=== PATIENT | female | born 1950 | race Caucasian/White ===

== ENCOUNTER 2022-08-27 08:38 | Day surgery (SDC) | payer MEDICARE ==
[~2022-08-27] VITALS: Ht 167.6 cm; Wt 78.0 kg
[~2022-08-27 08:38] MED LIST: AMLO5 PO; AMOCLA875 PO; ANTIDEPRESSANT; ASPI325 PO; CLOP75 PO; EUTHYROX50 MCG PO; EZET10 PO; LEVOTHYROXINE; LEVOTHYROXINE125 MC9 PO; METO25ER PO; Synthroid175 MCG PO; VENL150ER PO; XARELTO20 MG PO; ZOLP10 PO; [UNRECOGNIZED DRUG - REMARK]
[2022-08-27] MEDS ORDERED: AMLO5 PO (09:20)
--- NOTE | 2022-08-27 09:23 | NUR ---
Ambulatory in Day Surgery Patient confirms NPO status and agrees with scheduled surgery. History, Chart, Medications and Allergies reviewed before start of procedure.Patient States Post-Procedure ride home has been arranged.
--- NOTE | 2022-08-27 10:21 | NUR ---
08/27/22 1021 Ingrid Diggs HISTORY, CHART, MEDICATIONS AND ALLERGIES REVIEWED BEFORE START OF PROCEDURE. PATIENT CONFIRMS NPO STATUS AND AGREES WITH SCHEDULED PROCEDURE. 3-LEAD EKG REVIEWED WITH PHYSICIAN PRIOR TO START OF PROCEDURE. MONITOR INTACT WITH CONTINUOUS PULSE OXIMETRY,CAPNOGRAPHY, 3-LEAD EKG, INTERMITTENT BP. SUPPLEMENTAL O2 TO BE TITRATED THROUGHOUT PROCEDURE TO MAINTAIN O2 SATURATION ABOVE 90%. PATIENT DETERMINED TO BE ASA APPROPRIATE FOR PROPOFOL SEDATION PRIOR TO START OF PROCEDURE BY DR. LAGUERRE.
--- NOTE | 2022-08-27 11:26 | NUR ---
Patient up to Ambulate independently. Gait steady. Discharge instructions reviewed with patient. Patient verbalizes understanding. Copy given to patient to take home. Lungs clear T/O to Auscultation. Discharged via wheelchair to private car for ride home.
== END 2022-08-27 22:49 | disposition home or self-care (01) ==
LOC: ORSCMMR 08:38 → ORD 09:30 → ORSCMMR 22:49
PROVIDERS: Internal Medicine Gastroenterology
PROC: 0DBL8ZX Excision of Transverse Colon, Via Natural or Artificial Opening Endoscopic, Diagnostic (ICD-10-PCS; principal; 2022-08-27 09:30)
PROC: 0DBN8ZX Excision of Sigmoid Colon, Via Natural or Artificial Opening Endoscopic, Diagnostic (ICD-10-PCS; principal; 2022-08-27 09:30)
PROC: 0DBM8ZX Excision of Descending Colon, Via Natural or Artificial Opening Endoscopic, Diagnostic (ICD-10-PCS; principal; 2022-08-27 09:30)
DX: Z12.11 Encounter for screening for malignant neoplasm of colon (principal); K63.5 Polyp of colon; K64.8 Other hemorrhoids; I48.91 Unspecified atrial fibrillation; Z86.73 Personal history of transient ischemic attack (TIA), and cerebral infarction without residual deficits; E03.9 Hypothyroidism, unspecified; E78.00 Pure hypercholesterolemia, unspecified; F32.A Depression, unspecified; F17.210 Nicotine dependence, cigarettes, uncomplicated; Z79.01 Long term (current) use of anticoagulants; Z79.899 Other long term (current) drug therapy
CPT/HCPCS: 88305; J2405; J2704; J7120

== ENCOUNTER 2024-02-26 06:28 | Emergency (ER) | payer MEDICARE ==
[~2024-02-26] VITALS: Ht 170.2 cm; Wt 78.0 kg
[2024-02-26] MEDS ORDERED: NS 500 ML IV SCH (06:35)
[2024-02-26] MEDS ORDERED: Promethazine HCl 25 MG Tab PO ONE (06:35)
[2024-02-26 07:18] LABS: BASOPHILS ABSOLUTE AUTO 0.02 K/mm3 (0.00-0.23); BASOPHILS PERCENT AUTO 0 % (0-2); EOSINOPHILS PERCENT AUTO 0 % (0-6); Hematocrit 39.3 % (33.0-51.0); IMMATURE GRAN ABSOLUTE AUTO 0.02 K/mm3 (0.00-0.10); IMMATURE GRAN PERCENT AUTO 0 % (0-1); LYMPHOCYTES ABSOLUTE AUTO 0.96 K/mm3 (0.84-5.20); LYMPHOCYTES PERCENT AUTO 13 % (21-46); MONOCYTES ABSOLUTE AUTO 0.54 K/mm3 (0.16-1.47); MONOCYTES PERCENT AUTO 7 % (4-13); Mean Corpuscular HGB 32.9 pg (26.0-34.0); Mean Corpuscular HGB Conc 35.6 g/dL (31.5-36.5); Mean Corpuscular Volume 92 fL (80-100); Mean Platelet Volume 9.2 fL (9.1-12.4); NEUTROPHILS ABSOLUTE AUTO 6.02 K/mm3 (1.96-9.15); NEUTROPHILS PERCENT AUTO 80 % (41-73); Platelet Count 375 K/mm3 (150-400); RDW Coefficient Variation 13.3 % (11.7-14.2); RDW Standard Deviation 45.2 fL (35.1-46.3); Red Blood Cell Count 4.26 M/mm3 (3.80-5.20); White Blood Cell Count 7.56 K/mm3 (4.00-11.30)
[2024-02-26 07:35] LABS: International Normalized Ratio 1.62; Prothrombin Time Results 16.7 Sec (9.7-11.5)
[2024-02-26 07:51] LABS: Albumin, Blood 3.6 g/dL (3.4-5.0); Albumin/Globulin Ratio 1.1 (0.8-1.8); Bilirubin, Total 0.6 mg/dL (0.1-1.0); Bun/Creatinine Ratio 28.8 (12.0-20.0); Calcium, Blood 8.4 mg/dL (8.5-10.1); Creatinine, Blood 0.59 mg/dL (0.40-1.00); Globulin, Blood 3.2 g/dL (2.2-4.0); Potassium, Blood 3.4 mmol/L (3.5-5.5); Total Protein, Blood 6.8 g/dL (6.4-8.2)
[2024-02-26 10:15] VITALS: BP 153/87
[2024-02-26] MEDS ORDERED: PROM25 PO (10:22)
== END 2024-02-26 10:40 | disposition home or self-care (01) ==
LOC: ER 06:28
PROVIDERS: Emergency Medicine
DX: H81.399 Other peripheral vertigo, unspecified ear (principal); R11.10 Vomiting, unspecified; E03.9 Hypothyroidism, unspecified; I10 Essential (primary) hypertension; Z88.8 Allergy status to other drugs, medicaments and biological substances; Z86.73 Personal history of transient ischemic attack (TIA), and cerebral infarction without residual deficits; Z79.899 Other long term (current) drug therapy
CPT/HCPCS: 70450; 70551; 80053; 83036; 85025; 85610; 93005; 93010; 99285-25; A9270; J7030

== ENCOUNTER 2024-05-20 18:39 | Inpatient (IN) | payer MEDICARE ==
[~2024-05-20] VITALS: Ht 170.2 cm; Wt 76.8 kg
[~2024-05-20 18:39] MED LIST changes: +EUTHYROX175 MCG PO; +Enoxaparin 40 MG/0.4 ML SYR SC SCH; -LEVOTHYROXINE125 MC9 PO; +PROM25 PO
[2024-05-20 19:32] LABS: BASOPHILS ABSOLUTE AUTO 0.02 K/mm3 (0.00-0.23); BASOPHILS PERCENT AUTO 0 % (0-2); EOSINOPHILS ABSOLUTE AUTO 0.05 K/mm3 (0.00-0.68); EOSINOPHILS PERCENT AUTO 1 % (0-6); Hematocrit 40.2 % (33.0-51.0); Hemoglobin 14.5 g/dL (11.5-16.0); IMMATURE GRAN ABSOLUTE AUTO 0.13 K/mm3 (0.00-0.10); IMMATURE GRAN PERCENT AUTO 2 % (0-1); LYMPHOCYTES ABSOLUTE AUTO 1.45 K/mm3 (0.84-5.20); LYMPHOCYTES PERCENT AUTO 24 % (21-46); MONOCYTES ABSOLUTE AUTO 0.83 K/mm3 (0.16-1.47); MONOCYTES PERCENT AUTO 14 % (4-13); Mean Corpuscular HGB 32.4 pg (26.0-34.0); Mean Corpuscular HGB Conc 36.1 g/dL (31.5-36.5); Mean Corpuscular Volume 90 fL (80-100); Mean Platelet Volume 8.5 fL (9.1-12.4); NEUTROPHILS ABSOLUTE AUTO 3.47 K/mm3 (1.96-9.15); NEUTROPHILS PERCENT AUTO 58 % (41-73); Platelet Count 359 K/mm3 (150-400); RDW Coefficient Variation 13.7 % (11.7-14.2); RDW Standard Deviation 44.8 fL (35.1-46.3); Red Blood Cell Count 4.47 M/mm3 (3.80-5.20); White Blood Cell Count 5.95 K/mm3 (4.00-11.30)
[2024-05-20 19:56] LABS: Albumin, Blood 3.8 g/dL (3.4-5.0); Bilirubin, Total 0.4 mg/dL (0.1-1.0); Bun/Creatinine Ratio 23.2 (12.0-20.0); Calcium, Blood 9.6 mg/dL (8.5-10.1); Creatinine, Blood 0.73 mg/dL (0.40-1.00); Globulin, Blood 3.7 g/dL (2.2-4.0); Potassium, Blood 3.5 mmol/L (3.5-5.5); Total Protein, Blood 7.5 g/dL (6.4-8.2)
[2024-05-20] MEDS ORDERED: PredniSONE 20 MG Tab PO ONE (21:10)
[2024-05-20] MEDS ORDERED: Azithromycin 250 MG Tab PO ONE (21:10)
[2024-05-20] MEDS ORDERED: Ipratropium/Albuterol SulF 2.5-0.5MG/3 ML Amp INH ONE (21:10)
[2024-05-20] MEDS ORDERED: Albuterol 2.5 MG/3 ML VIAL INH SCH ×2 (21:10→23:00)
[2024-05-20] MEDS ORDERED: Ondansetron HCl 2 MG / ML 2ML Vial IV PRN (23:20)
[2024-05-20] MEDS ORDERED: FLU VACC TS2024-25(6MOS UP)/PF 45 MCG/0.5 ML SYRINGE IM ONE (23:20)
[2024-05-20] MEDS ORDERED: Ipratropium/Albuterol SulF 2.5-0.5MG/3 ML Amp INH PRN (23:20)
[2024-05-21] MEDS ORDERED: MethylPREDNISolone Sod Succ 125 MG Vial IV SCH
[2024-05-21 00:50] LABS: Influenza B, PCR NEGATIVE (NEGATIVE); Resp Syncytial Virus, PCR NEGATIVE (NEGATIVE); SARS-Cov-2 (COVID-19) PCR, MMC NEGATIVE (NEGATIVE)
[2024-05-21 00:56] LABS: Influenza A, PCR POSITIVE (NEGATIVE)
[2024-05-21 01:43] VITALS: BP 151/86
[2024-05-21] MEDS ORDERED: Acetaminophen 325 MG TABLET PO PRN (03:15)
[2024-05-21] MEDS ORDERED: Oseltamivir Phosphate 75 MG Cap PO ONE (05:00)
[2024-05-21 05:55] LABS: BASOPHILS ABSOLUTE AUTO 0.01 K/mm3 (0.00-0.23); BASOPHILS PERCENT AUTO 0 % (0-2); EOSINOPHILS PERCENT AUTO 0 % (0-6); Hematocrit 36.4 % (33.0-51.0); Hemoglobin 13.1 g/dL (11.5-16.0); IMMATURE GRAN ABSOLUTE AUTO 0.15 K/mm3 (0.00-0.10); IMMATURE GRAN PERCENT AUTO 2 % (0-1); LYMPHOCYTES ABSOLUTE AUTO 0.58 K/mm3 (0.84-5.20); LYMPHOCYTES PERCENT AUTO 8 % (21-46); MONOCYTES PERCENT AUTO 1 % (4-13); Mean Corpuscular HGB 32.2 pg (26.0-34.0); Mean Corpuscular Volume 89 fL (80-100); NEUTROPHILS ABSOLUTE AUTO 6.88 K/mm3 (1.96-9.15); NEUTROPHILS PERCENT AUTO 89 % (41-73); Platelet Count 359 K/mm3 (150-400); RDW Coefficient Variation 13.7 % (11.7-14.2); RDW Standard Deviation 44.8 fL (35.1-46.3); Red Blood Cell Count 4.07 M/mm3 (3.80-5.20); White Blood Cell Count 7.72 K/mm3 (4.00-11.30)
[2024-05-21 06:16] LABS: Albumin, Blood 3.4 g/dL (3.4-5.0); Bilirubin, Total 0.4 mg/dL (0.1-1.0); Bun/Creatinine Ratio 24.8 (12.0-20.0); Calcium, Blood 8.9 mg/dL (8.5-10.1); Creatinine, Blood 0.77 mg/dL (0.40-1.00); Globulin, Blood 3.5 g/dL (2.2-4.0); Total Protein, Blood 6.9 g/dL (6.4-8.2)
[2024-05-21] MEDS ORDERED: Benzonatate 100 MG Cap PO PRN (06:20)
[2024-05-21 07:34] VITALS: BP 149/90
--- NOTE | 2024-05-21 07:41 | NUR ---
SHIFT SUMMARY PT ADMITTED APPROX 0100 FOR NEW DIAGNOSIS OF COPD WITH EXACERBATION. PT S WILL BE BACK TODAY TO VISIT AND BRING PT S MEDICATIONS TO COMPLETE MED REC. PT LUNGS SOUND COURSE AND WET. PT ALSO TESTED POSITIVE FOR INFLUENZA A AND IS ON DROPLET PRECAUTIONS. PT IS PLEASANT AND COOPERATIVE WITH CARE. PT ON 2L SUPPLEMENTAL O2 VIA NC OR FACE MASK.
[2024-05-21] MEDS ORDERED: NS 500 ML IV SCH (07:45)
[2024-05-21] MEDS ORDERED: Potassium Chloride 20 MEQ TabCR PO SCH (08:00)
[2024-05-21] MEDS ORDERED: Guaifenesin/Dextromethorphan Syrup 5 ML UDC PO PRN (08:15)
[2024-05-21] MEDS ORDERED: Levothyroxine Sodium 0.05 MG Tab PO SCH (08:30)
[2024-05-21] MEDS ORDERED: Losartan Potassium 25 MG Tab PO SCH (09:00)
[2024-05-21] MEDS ORDERED: AmLODIPine Besylate 5 MG Tab PO SCH (09:00)
[2024-05-21] MEDS ORDERED: Venlafaxine HCl 75 MG CapCR PO SCH (09:00)
[2024-05-21] MEDS ORDERED: OxyCODONE HCL 5 MG TAB PO PRN (11:10)
[2024-05-21] MEDS ORDERED: PROM25 PO (11:13)
[2024-05-21] MEDS ORDERED: TRAZ50 PO (11:13)
[2024-05-21] MEDS ORDERED: METO25ER PO (11:14)
[2024-05-21] MEDS ORDERED: LEVOTHYROXINE150 MC9 PO (11:16)
[2024-05-21] MEDS ORDERED: CYCL10 PO (11:17)
--- NOTE | 2024-05-21 11:17 | NUR ---
"Spiritual Care Visit | Pt. request Pt. is awake in bed and welcomes my visit. Pt. is pleasant. No other visitors are present. faciltated a life review and considered matters of jarett and belief. Pt. displayed evidence of engagement and awareneness. Prayed with Pt. Pt. verbalized gratitude for the spiritual care visit."
[2024-05-21] MEDS ORDERED: Coumadin5 MG PO (11:18)
[2024-05-21] MEDS ORDERED: CEFD300 PO (11:19)
[2024-05-21 13:00] LABS: International Normalized Ratio 1.67; Prothrombin Time Results 17.2 Sec (9.7-11.5)
[2024-05-21 15:30] VITALS: BP 150/83
[2024-05-21] MEDS ORDERED: ALBU90OI INH (16:53)
[2024-05-21] MEDS ORDERED: Warfarin Sodium 5 MG Tab PO SCH (18:00)
--- NOTE | 2024-05-21 18:09 | NUR ---
SHIFT SUMMARY PT CONT LEVEL OF CARE WITH NO ACUTE CHANGES NOTED. PT IS A&OX4 AND INDEPENDENT IN ROOM. PT CONT TO UTILIZE 2L/NC. PT BROUGHT IN HOME MEDICATION THIS SHIFT MED REC WAS COMPLETED AND PT WAS RESTARTED ON HOME MEDICATIONS. PT NOTED TO BE COOPERATIVE WITH CARES AND CALL APPROPRIATE.
[2024-05-21] MEDS ORDERED: Azithromycin 500 MG in NS 250 ML IV SCH (21:00)
[2024-05-21] MEDS ORDERED: Enoxaparin 40 MG/0.4 ML SYR SC SCH (21:00)
[2024-05-21] MEDS ORDERED: Oseltamvir Phosphate 30 MG Cap PO SCH (21:00)
[2024-05-21 21:02] VITALS: BP 153/86
[2024-05-22] MEDS ORDERED: Zolpidem Tartrate 10 MG Tab PO PRN (00:20)
[2024-05-22] MEDS ORDERED: Venlafaxine HC150 MG PO (03:40)
[2024-05-22] MEDS ORDERED: SYNTHROID175 MC1 PO (03:41)
[2024-05-22] MEDS ORDERED: SYNTHROID150 MC2 PO (03:42)
--- NOTE | 2024-05-22 04:28 | NUR ---
SHIFT SUMMARY PT IS A/OX4, INDEPENDENT IN THE ROOM. NO ACUTE CHANGED THROUGHOUT THIS SHIFT. PT REMAINS ON 2L NC IN ORDER TO MAINTAIN SATS >92%. ON TELE RUNNING SINUS RYTHYM WITH 1 DEGREE AV BLOCK AND BBB IN THE 70'S. ORDER RECIEVED FOR HOME DOSE OF AMBIEN 10 MG PO AT BEDTIME PRN FOR SLEEP.
[2024-05-22] MEDS ORDERED: Levothyroxine Sodium 0.125 MG Tab PO SCH (06:00)
[2024-05-22 06:26] VITALS: BP 164/94
[2024-05-22 07:03] VITALS: BP 159/86
[2024-05-22 07:12] LABS: International Normalized Ratio 1.8; Prothrombin Time Results 18.4 Sec (9.7-11.5)
[2024-05-22 07:19] LABS: Hematocrit 36.7 % (33.0-51.0); Hemoglobin 13.2 g/dL (11.5-16.0); Mean Corpuscular HGB 32.7 pg (26.0-34.0); Mean Corpuscular Volume 91 fL (80-100); Mean Platelet Volume 8.9 fL (9.1-12.4); Platelet Count 394 K/mm3 (150-400); RDW Coefficient Variation 14.3 % (11.7-14.2); RDW Standard Deviation 47.1 fL (35.1-46.3); Red Blood Cell Count 4.04 M/mm3 (3.80-5.20); White Blood Cell Count 12.11 K/mm3 (4.00-11.30)
[2024-05-22 07:48] LABS: Albumin, Blood 3.5 g/dL (3.4-5.0); Albumin/Globulin Ratio 1.1 (0.8-1.8); Bilirubin, Total 0.3 mg/dL (0.1-1.0); Calcium, Blood 9.3 mg/dL (8.5-10.1); Creatinine, Blood 0.73 mg/dL (0.40-1.00); Globulin, Blood 3.3 g/dL (2.2-4.0); Magnesium, Blood 2.1 mg/dL (1.6-2.4); Potassium, Blood 4.4 mmol/L (3.5-5.5); Total Protein, Blood 6.8 g/dL (6.4-8.2)
[2024-05-22] MEDS ORDERED: Levothyroxine Sodium 0.15 MG Tab PO SCH (07:55)
[2024-05-22] MEDS ORDERED: Furosemide 20 MG Tab PO ONE ×2 (08:00→13:15)
[2024-05-22] MEDS ORDERED: Cyclobenzaprine HCl 10 MG Tab PO PRN (08:00)
[2024-05-22] MEDS ORDERED: Venlafaxine HCl 75 MG CapCR PO SCH (09:00)
[2024-05-22] MEDS ORDERED: AmLODIPine Besylate 5 MG Tab PO SCH (09:00)
[2024-05-22] MEDS ORDERED: Metoprolol Succinate 25 MG TABCR PO SCH (09:00)
--- NOTE | 2024-05-22 16:41 | NUR ---
SHIFT SUMMARY A&OX4, COOPERATIVE WITH CARE. PATIENT TRANSFERRED FROM SCU ABOUT 1000. INDEPENDENT IN ROOM. SPOUSE AT BEDSIDE. DENIES CP/PRESSURE, HEADACHE, OR DIZZINESS. SOB WITH EXERTION. CURRENTLY ON 2L O2 VIA NC. VSS. DENIES PAIN AT THIS TIME. NO ACUTE EVENTS THIS SHIFT. CURRENTLY WATCHING TV. BED IN THE LOWEST POSITION. CALL LIGHT WITHIN REACH.
[2024-05-22] MEDS ORDERED: Warfarin Sodium 5 MG Tab PO SCH (18:00)
[2024-05-22 19:39] VITALS: BP 151/85
[2024-05-22] MEDS ORDERED: Zolpidem Tartrate 10 MG Tab PO SCH (21:00)
[2024-05-23 03:01] VITALS: BP 141/75
--- NOTE | 2024-05-23 03:27 | NUR ---
SHIFT SUMMARY PT AOX4, COOPERATIVE, ABLE TO MAKE NEEDS KNOWN. IND IN ROOM, ON 2 L O2 CURRENTLY. LEFT ACIV WAS LEAKING, DC'D IT, RE-ESTABLISHED IV IN RIGHT FOREARM THAT IS PATENT. PT TOLERATING PO AND IV MEDICATIONS. BED IN LOWEST POSITION, CALL LIGHT WITHIN REACH.
[2024-05-23 05:29] LABS: BASOPHILS ABSOLUTE AUTO 0.02 K/mm3 (0.00-0.23); BASOPHILS PERCENT AUTO 0 % (0-2); EOSINOPHILS PERCENT AUTO 0 % (0-6); Hematocrit 36.5 % (33.0-51.0); Hemoglobin 12.9 g/dL (11.5-16.0); IMMATURE GRAN ABSOLUTE AUTO 0.16 K/mm3 (0.00-0.10); IMMATURE GRAN PERCENT AUTO 1 % (0-1); LYMPHOCYTES ABSOLUTE AUTO 0.97 K/mm3 (0.84-5.20); LYMPHOCYTES PERCENT AUTO 7 % (21-46); MONOCYTES ABSOLUTE AUTO 0.61 K/mm3 (0.16-1.47); MONOCYTES PERCENT AUTO 5 % (4-13); Mean Corpuscular HGB 32.5 pg (26.0-34.0); Mean Corpuscular HGB Conc 35.3 g/dL (31.5-36.5); Mean Corpuscular Volume 92 fL (80-100); Mean Platelet Volume 8.8 fL (9.1-12.4); NEUTROPHILS ABSOLUTE AUTO 11.38 K/mm3 (1.96-9.15); NEUTROPHILS PERCENT AUTO 87 % (41-73); Platelet Count 390 K/mm3 (150-400); RDW Coefficient Variation 14.3 % (11.7-14.2); RDW Standard Deviation 48.1 fL (35.1-46.3); Red Blood Cell Count 3.97 M/mm3 (3.80-5.20); White Blood Cell Count 13.14 K/mm3 (4.00-11.30)
[2024-05-23 05:45] LABS: International Normalized Ratio 2.45; Prothrombin Time Results 24.5 Sec (9.7-11.5)
[2024-05-23 06:06] LABS: Bun/Creatinine Ratio 35.1 (12.0-20.0); Creatinine, Blood 0.71 mg/dL (0.40-1.00); Magnesium, Blood 2.3 mg/dL (1.6-2.4)
[2024-05-23 07:25] VITALS: BP 164/80
[2024-05-23] MEDS ORDERED: Metoprolol Succinate 50 MG TABCR PO SCH (09:00)
[2024-05-23] MEDS ORDERED: OSELTAMIVIR PHO30 M1 PO (12:19)
[2024-05-23] MEDS ORDERED: BENZ100A PO (12:20)
[2024-05-23] MEDS ORDERED: Pulmicort Fle180 MCG INH (12:21)
[2024-05-23] MEDS ORDERED: PRED20 PO (12:24)
--- NOTE | 2024-05-23 13:01 | NUR ---
DISCHARGE PT DISCHARGED HOME WITH SPOUSE VIA WHEELCHAIR. EDUCATION PROVIDED, ALL BELONGINGS WITH PT.
[2024-05-23] MEDS ORDERED: Warfarin Sodium 7.5 MG Tab PO SCH (18:00)
[2024-05-25] MEDS ORDERED: Levothyroxine Sodium 0.175 MG TAB PO SCH (06:00)
== END 2024-05-23 12:53 | disposition home or self-care (01) | DRG 193 ==
LOC: ER 18:39 → ERHOLD 22:40 → MEDS 22:40
PROVIDERS: Hospitalist; Student in an Organized Health Care Education/Training Program; ADMIT Internal Medicine
DX: J10.1 Influenza due to other identified influenza virus with other respiratory manifestations (principal); J96.01 Acute respiratory failure with hypoxia; I48.91 Unspecified atrial fibrillation; I10 Essential (primary) hypertension; E03.9 Hypothyroidism, unspecified; F32.A Depression, unspecified; I45.10 Unspecified right bundle-branch block; Z79.890 Hormone replacement therapy; Z79.01 Long term (current) use of anticoagulants; Z86.73 Personal history of transient ischemic attack (TIA), and cerebral infarction without residual deficits; Z87.891 Personal history of nicotine dependence; Z88.8 Allergy status to other drugs, medicaments and biological substances
CPT/HCPCS: 0241U; 36415; 71046; 80048; 80053; 83735; 83880; 84484; 85025; 85027; 85610; 87070; 87205; 93005; 93010; 94640; 94644; 94664; 94760; 94761; A9270; G0378; J0456; J1650; J2919; J7040; J7050; J7512